=== PATIENT | male | born 1995 ===

== ENCOUNTER 2016-12-11 14:42 | Emergency (ER) | payer OTHER ==
[2016-12-11 14:42] VITALS: BMI 23.3
[2016-12-11 15:12] VITALS: BP 120/68; PULSE 63; RESP 16; TEMP 98.9; O2SAT 99
--- NOTE | 2016-12-11 15:46 | ED PDOC ---
HPI: General Adult Time Seen by Provider: 12/11/16 15:13 Chief Complaint (Nursing): Psychiatric Evaluation Chief Complaint (Provider): Needs a "neurology consult" History Per: Patient History/Exam Limitations: no limitations Additional Complaint(s): Pt states he was seen in ER and clinic for headaches and "memory loss". Pt states he was given Rx to be seen by neurology for consult. PT states that he had an appointment with neurology but did not make the appointment so he comes to ER for consult. Rx is dates 10/10/16. Past Medical History Reviewed: Historical Data, Nursing Documentation, Vital Signs Vital Signs: Last Vital Signs Temp 98.9 F 12/11/16 15:08 Pulse 63 12/11/16 15:08 Resp 16 12/11/16 15:08 BP 120/68 12/11/16 15:08 Pulse Ox 99 12/11/16 15:08 - Medical History PMH: No Chronic Diseases Denies: Diabetes, Hepatitis, HIV, HTN, Chronic Kidney Disease, Seizures, Sexually Transmitted Disease - Surgical History Surgical History: No Surg Hx - Family History Family History: States: Unknown Family Hx - Living Arrangements Living Arrangements: With Family - Social History Current smoker - smoking cessation education provided: No Alcohol: None Drugs: Denies - Home Medications Home Medications: Ambulatory Orders Medication Instructions Recorded Naproxen [Naprosyn] 500 mg PO Q12H #8 tablet 12/04/16 - Allergies Allergies/Adverse Reactions: Allergies Allergy/AdvReac Type Severity Reaction Status Date / Time No Known Allergies Allergy Verified 10/02/16 14:25 Review of Systems ROS Statement: Except As Marked, All Systems Reviewed And Found Negative Psych: Positive for: Other Physical Exam - Reviewed Nursing Documentation Reviewed: Yes Vital Signs Reviewed: Yes - Physical Exam Appears: Positive for: Well, Non-toxic, No Acute Distress Head Exam: Positive for: ATRAUMATIC, NORMAL INSPECTION, NORMOCEPHALIC Skin: Positive for: Normal Color, Warm, DRY Eye Exam: Positive for: EOMI, Normal appearance, PERRL ENT: Positive for: Normal ENT Inspection Neck: Positive for: Normal, Painless ROM Cardiovascular/Chest: Positive for: Regular Rate, Rhythm Respiratory: Positive for: CNT, Normal Breath Sounds Gastrointestinal/Abdominal: Positive for: Normal Exam, Bowel Sounds, Soft Back: Positive for: Normal Inspection Extremity: Positive for: Normal ROM Neurologic/Psych: Positive for: Alert, Oriented - ECG O2 Sat by Pulse Oximetry: 99 Disposition - Clinical Impression Clinical Impression: Normal exam Counseled Patient/Family Regarding: Diagnosis, Need For Followup - Disposition Referrals: [facility] [Outside] Corinna Borges MD [Staff Provider] - Disposition: Routine/Home Disposition Time: 15:46 Condition: GOOD Instructions: Normal Exam (ED) Print Language: UZBEK
== END 2016-12-11 15:56 | disposition home or self-care (01) ==
LOC: H.ER 14:42
DX: R51 Headache (principal)

== ENCOUNTER 2016-12-26 15:51 | Emergency (ER) | payer OTHER ==
[2016-12-26 15:51] VITALS: BMI 23.3
[2016-12-26 16:12] VITALS: BP 121/62; PULSE 74; RESP 18; TEMP 98.5; O2SAT 99
--- NOTE | 2016-12-26 16:43 | ED PDOC ---
HPI: General Adult Chief Complaint (Nursing): Medical Clearance Chief Complaint (Provider): medical clearance History Per: Patient History/Exam Limitations: no limitations Onset/Duration Of Symptoms: Unknown Have you had recent travel within the past 21 days to any of the following countries: [place], [place], [place] or [place]?: No Additional Complaint(s): Margariat Frey is a 21 year old male, with no previous medical history, who presents to the ED with prescriptions from neurologist for blood work and MRI. Patient is requesting to have his testing done in the ED. Patient was informed that he would be needed to be seen as an outpatient because the ED cannot preform these test. Past Medical History Reviewed: Historical Data, Nursing Documentation, Vital Signs Vital Signs: Last Vital Signs Temp 98.5 F 12/26/16 16:05 Pulse 74 12/26/16 16:05 Resp 18 12/26/16 16:05 BP 121/62 12/26/16 16:05 Pulse Ox 99 01/05/17 20:12 - Medical History PMH: No Chronic Diseases Denies: Diabetes, Hepatitis, HIV, HTN, Chronic Kidney Disease, Seizures, Sexually Transmitted Disease - Family History Family History: States: Unknown Family Hx - Home Medications Home Medications: Ambulatory Orders Medication Instructions Recorded No Known Home Med 12/11/16 - Allergies Allergies/Adverse Reactions: Allergies Allergy/AdvReac Type Severity Reaction Status Date / Time No Known Allergies Allergy Verified 12/11/16 15:55 Review of Systems ROS Statement: Except As Marked, All Systems Reviewed And Found Negative (no active medical complaints) Physical Exam - Reviewed Nursing Documentation Reviewed: Yes Vital Signs Reviewed: Yes - Physical Exam Appears: Positive for: Well, Non-toxic, No Acute Distress Head Exam: Positive for: ATRAUMATIC, NORMAL INSPECTION, NORMOCEPHALIC Cardiovascular/Chest: Positive for: Regular Rate, Rhythm Respiratory: Positive for: CNT, Normal Breath Sounds Neurologic/Psych: Positive for: Alert, Oriented - ECG O2 Sat by Pulse Oximetry: 99 (RA) Pulse Ox Interpretation: Normal Medical Decision Making Medical Decision Making: Initial Plan: * physical exam * disposition Scribe Attestation: Documented by Ivy Bowers, acting as a scribe for Elva Arreguin PA-C. Provider Scribe Attestation: All medical record entries made by the Scribe were at my direction and personally dictated by me. I have reviewed the chart and agree that the record accurately reflects my personal performance of the history, physical exam, medical decision making, and the department course for this patient. I have also personally directed, reviewed, and agree with the discharge instructions and disposition. Disposition - Clinical Impression Clinical Impression: Normal exam - Patient ED Disposition Is Patient to be Admitted: No Counseled Patient/Family Regarding: Diagnosis, Need For Followup - Disposition Disposition: Routine/Home Disposition Time: 16:41 Condition: GOOD Instructions: Normal Exam (ED) Print Language: BERMUDIAN
== END 2016-12-26 16:49 | disposition home or self-care (01) ==
LOC: H.ER 15:51
DX: Z00.00 Encounter for general adult medical examination without abnormal findings (principal)

== ENCOUNTER 2017-07-21 01:18 | Emergency (ER) | payer OTHER ==
[2017-07-21 01:18] VITALS: BMI 22.7
[2017-07-21 01:31] VITALS: BP 149/86; PULSE 68; RESP 18; TEMP 97.8; O2SAT 99
--- NOTE | 2017-07-21 02:04 | ED PDOC ---
HPI: Psych/Substance Abuse Time Seen by Provider: 07/21/17 01:41 Chief Complaint (Nursing): Psychiatric Evaluation History Per: Patient History/Exam Limitations: no limitations Onset/Duration Of Symptoms: Days Current Symptoms Are (Timing): Still Present Additional Complaint(s): Pt. arrives to ER c/o of "Seeing things", states he denies alcohol or drug use, but he has not been taking his medications as prescribed. denies si/hi. Past Medical History Vital Signs: Last Vital Signs Temp 97.8 F 07/21/17 01:28 Pulse 68 07/21/17 01:28 Resp 18 07/21/17 01:28 BP 149/86 07/21/17 01:28 Pulse Ox 99 07/21/17 01:28 - Medical History PMH: Anxiety Denies: Diabetes, Hepatitis, HIV, HTN, Chronic Kidney Disease, Seizures, Sexually Transmitted Disease - Family History Family History: States: Unknown Family Hx - Home Medications Home Medications: Ambulatory Orders Medication Instructions Recorded Divalproex [Depakote DR (*BID*)] 250 mg PO BID #30 tcp 06/12/17 LORazepam [Ativan] 0.5 mg PO DAILY PRN #14 tab 06/12/17 Risperidone [Risperdal] 1 mg PO AMHS #30 tablet 06/12/17 Thiamine [Vitamin B1 Tab] 100 mg PO DAILY #14 tab 06/12/17 buPROPion [Wellbutrin] 75 mg PO BID #30 tab 06/12/17 - Allergies Allergies/Adverse Reactions: Allergies Allergy/AdvReac Type Severity Reaction Status Date / Time No Known Allergies Allergy Verified 07/21/17 01:26 Review of Systems ROS Statement: Except As Marked, All Systems Reviewed And Found Negative Psych: Negative for: Anxiety, Depression, Psychosis, Suicidal ideation Physical Exam - Reviewed Nursing Documentation Reviewed: Yes Vital Signs Reviewed: Yes - Physical Exam Appears: Positive for: Well, Non-toxic, No Acute Distress Head Exam: Positive for: ATRAUMATIC, NORMAL INSPECTION, NORMOCEPHALIC Skin: Positive for: Normal Color, Warm, DRY Eye Exam: Positive for: EOMI, Normal appearance, PERRL ENT: Positive for: Normal ENT Inspection Neck: Positive for: Normal, Painless ROM Cardiovascular/Chest: Positive for: Regular Rate, Rhythm Respiratory: Positive for: CNT, Normal Breath Sounds Gastrointestinal/Abdominal: Positive for: Normal Exam, Bowel Sounds, Soft Back: Positive for: Normal Inspection Extremity: Positive for: Normal ROM Neurologic/Psych: Positive for: 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 Negative for: Motor/Sensory Deficits - Laboratory Results Result Diagrams: 07/21/17 02:05 07/21/17 02:05 - ECG O2 Sat by Pulse Oximetry: 99 Pulse Ox Interpretation: Normal Medical Decision Making Medical Decision Making: Pt. requiring crisis eval. 450am pt. cleared by dr. cuello for d/c, will f/u as outpatient. Disposition - Clinical Impression Clinical Impression: Depression - Disposition [facility]errals[facility]] Disposition: Routine/Home Disposition Time: 04:54 Condition: STABLE Instructions: Suicide Prevention for Adults (DC), Depression (ED) Forms: [facility] (Czech) Print Language: MARTINIQUAIS
[2017-07-21 02:21] LABS: BASO # 0.1 K/uL (0.0-0.2); BASO % 1.2 % (0.0-2.0); EOS # 0.1 K/uL (0.0-0.7); EOS % 1.1 % (0.0-4.0); HEMATOCRIT 46.9 % (35.0-51.0); LYMPH % 39.6 % (20.0-40.0); MEAN CELL VOLUME 89.5 fl (80.0-94.0); MEAN CORPUSCULAR HGB CONC 33.5 g/dL (33.0-37.0); MEAN PLATELET VOLUME 9.3 fl (7.2-11.7); MONO # 0.5 K/uL (0.0-0.8); MONO % 9.9 % (0.0-10.0); NEUT # 2.4 K/uL (1.8-7.0); NEUT % 48.2 % (50.0-75.0); RED CELL DISTRIBUTION WIDTH 12.9 % (11.5-14.5); WHITE BLOOD COUNT 4.9 K/uL (4.8-10.8)
[2017-07-21 02:23] LABS: RBC URINE 7 /hpf (0-3); URINE BACTERIA RARE (<OCC); URINE BILIRUBIN NEGATIVE (NEGATIVE); URINE BLOOD SMALL (NEGATIVE); URINE COLOR STRAW (YELLOW); URINE GLUCOSE (UA) NEG (Normal); URINE KETONE 20 mg/dL (NEGATIVE); URINE LEUKOCYTE ESTERASE NEG Leu/uL (Negative); URINE PROTEIN NEGATIVE (NEGATIVE); URINE UROBILINOGEN 0.2-1.0 mg/dL (0.2-1.0); WBC URINE 1 /hpf (0-5)
[2017-07-21 02:28] LABS: ALCOHOL SERUM < 10 mg/dl (0-10); BLOOD UREA NITROGEN 11 mg/dl (9-20); CALCIUM 9.5 mg/dL (8.4-10.2); CARBON DIOXIDE 24 mmol/L (22-30); CHLORIDE 101 mmol/L (98-107); GFR AFRICAN-AMERICAN > 60; GLUCOSE,RANDOM 90 mg/dL (75-110); POTASSIUM 3.5 MMOL/L (3.6-5.0); SODIUM 137 mmol/l (132-148)
== END 2017-07-21 05:21 | disposition home or self-care (01) ==
LOC: H.ER 01:18
DX: F32.9 Major depressive disorder, single episode, unspecified (principal); F41.9 Anxiety disorder, unspecified; Z91.14 Patient's other noncompliance with medication regimen

== ENCOUNTER 2018-01-08 18:08 | Inpatient (IN) | payer MEDICAID, OTHER ==
[2018-01-08 18:08] VITALS: BMI 24.5
--- NOTE | 2018-01-08 18:37 | ED PDOC ---
HPI: General Adult Time Seen by Provider: 01/08/18 18:22 Chief Complaint (Nursing): Headache Chief Complaint (Provider): No sleep History Per: Patient History/Exam Limitations: no limitations Onset/Duration Of Symptoms: Days Additional Complaint(s): Pt. states he has not slept for months. States his head hurts from that. Not the worst headache in his life. No numbness, tingles, weakness, neck pain, vision changes, abd pain, nausea, vomit, diarrhea. No fever. No injury. Denies drugs or etoh. Taking his meds. Pt. states the talking is making him "loco". No vision changes. Past Medical History Reviewed: Nursing Documentation, Vital Signs Vital Signs: Last Vital Signs Temp 98.3 F 01/08/18 18:14 Pulse 94 H 01/08/18 18:14 Resp 18 01/08/18 18:14 BP 128/76 01/08/18 18:14 Pulse Ox 96 01/08/18 18:37 - Medical History PMH: Anxiety, Bipolar Disorder Denies: Diabetes, Hepatitis, HIV, HTN, Chronic Kidney Disease, Seizures, Sexually Transmitted Disease - Surgical History Surgical History: No Surg Hx - Family History Family History: States: Unknown Family Hx - Immunization History Hx Tetanus Toxoid Vaccination: No Hx Influenza Vaccination: No Hx Pneumococcal Vaccination: No - Home Medications Home Medications: Ambulatory Orders Medication Instructions Recorded Benztropine [Benztropine Mesylate] 2 mg PO AMHS #30 tab 07/27/17 DiphenhydrAMINE [Benadryl] 50 mg PO HS #14 cap 07/27/17 Divalproex [Depakote DR(*BID*)] 500 mg PO AMHS #30 ect 07/27/17 Risperidone [Risperdal] 2 mg PO AMHS #30 tablet 07/27/17 buPROPion [Wellbutrin] 100 mg PO BID #30 tab 07/27/17 - Allergies Allergies/Adverse Reactions: Allergies Allergy/AdvReac Type Severity Reaction Status Date / Time No Known Allergies Allergy Verified 01/08/18 18:13 Review of Systems ROS Statement: Except As Marked, All Systems Reviewed And Found Negative Neurological: Positive for: Headache Physical Exam - Reviewed Nursing Documentation Reviewed: Yes Vital Signs Reviewed: Yes - Physical Exam Appears: Positive for: Non-toxic, No Acute Distress Head Exam: Positive for: ATRAUMATIC, NORMAL INSPECTION, NORMOCEPHALIC Skin: Positive for: Normal Color, Warm, DRY Eye Exam: Positive for: EOMI, Normal appearance, PERRL ENT: Positive for: Normal ENT Inspection Neck: Positive for: Normal, Painless ROM Cardiovascular/Chest: Positive for: Regular Rate, Rhythm Respiratory: Positive for: CNT, Normal Breath Sounds Gastrointestinal/Abdominal: Positive for: Normal Exam, Soft. Negative for: Tenderness Back: Positive for: Normal Inspection. Negative for: L CVA Tenderness, R CVA Tenderness Extremity: Positive for: Normal ROM. 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 Negative for: Motor/Sensory Deficits, Aphasia, Facial Droop - Laboratory Results Result Diagrams: 01/08/18 18:30 01/08/18 18:30 - ECG O2 Sat by Pulse Oximetry: 96 - Progress ED Course And Treament: 1925: Stable. Pain free. Tolerated po. Crisis saw pt. Will admit. Pt. medically stable for crisis. Disposition - Clinical Impression Clinical Impression: Schizophrenia - Patient ED Disposition Is Patient to be Admitted: Yes Counseled Patient/Family Regarding: Studies Performed, Diagnosis - Disposition Disposition Time: 19:00 Condition: FAIR - Pt Status Changed To: Hospital Disposition Of: Inpatient - Admit Certification Admit to Inpatient:: After my assessment, the patient will require hospitalization for at least two midnights. This is because of the severity of symptoms shown, intensity of services needed, and/or the medical risk in this patient being treated as an outpatient. - POA Present On Arrival: None
[2018-01-08 18:53] LABS: BASO # 0.1 K/uL (0.0-0.2); BASO % 1.1 % (0.0-2.0); EOS # 0.1 K/uL (0.0-0.7); EOS % 1.5 % (0.0-4.0); LYMPH # 2.5 K/uL (1.0-4.3); LYMPH % 46.8 % (20.0-40.0); MEAN CELL VOLUME 89.1 fl (80.0-94.0); MEAN CORPUSCULAR HEMOGLOBIN 30.4 pg (27.0-31.0); MEAN CORPUSCULAR HGB CONC 34.1 g/dL (33.0-37.0); MONO # 0.5 K/uL (0.0-0.8); MONO % 10.1 % (0.0-10.0); NEUT # 2.1 K/uL (1.8-7.0); NEUT % 40.5 % (50.0-75.0); RBC 4.93 Mil/uL (4.40-5.90); RED CELL DISTRIBUTION WIDTH 12.8 % (11.5-14.5); WHITE BLOOD COUNT 5.3 K/uL (4.8-10.8)
[2018-01-08 19:03] LABS: ALB/GLOB RATIO 1.2 (1.0-2.1)
[2018-01-08 19:12] LABS: ALT/SGPT 41 U/L (21-72); AST/SGOT 23 U/L (17-59); BARBITURATES, UR NEGATIVE (NEGATIVE); BENZODIAZEPINES, UR NEGATIVE (NEGATIVE); BLOOD UREA NITROGEN 14 mg/dl (9-20); GFR AFRICAN-AMERICAN > 60; GFR NON-AFRICAN AMERICAN > 60; OPIATES, UR NEGATIVE (NEGATIVE); PHENCYCLIDINE, UR NEGATIVE (NEGATIVE)
[2018-01-08] MEDS ORDERED: Alum-Mag Hydrox-Simethicone Susp (30 mL) PO PRN (21:24)
[2018-01-08] MEDS ORDERED: DiphenhydrAMINE 50 mg/ml Inj IM PRN (21:24)
[2018-01-08] MEDS ORDERED: Magnesium Hydroxide Susp 30 ml UD PO PRN (21:24)
--- NOTE | 2018-01-08 21:41 | PCM.BM ---
<IvajasonMatt davidjudith Umaña - Last Filed: 01/08/18 21:40> Treatment Plan Problems - Problems identified on initial assessmt Medication nonadherence Date Initiated: 01/08/18 Time Initiated: 21:40 Assessment reference: NA Status: Active Impaired Communication Date Initiated: 01/08/18 Time Initiated: 21:40 Assessment reference: NA Status: Active Treatment assets and liabiliti Patient Assests: cooperative, ADL independent, physically healthy, negotiates basic needs Patient Liabilities: live alone, financial problems, poor support system, relationship conflicts, language/speech - Milieu Protocol Maintain good personal hygiene: daily Encourage regular showers, daily Remind patient to perform daily oral care, daily Assist patient to perform ADL's Conduct patient checks and document Observation sheet: Q15 minutes Maintain personal safety: every shift Educate patient to report safety concerns to staff, every shift Monitor environment for contraband/sharps Medication safety: Monitor for expected outcome, potential side effects: every shift, Assess barriers to learning: every shift, Assess readiness for medication education: every shift <Vandana De Leon - Last Filed: 01/09/18 15:41> Treatment assets and liabiliti Patient Assests: self-reliant, ADL independent, physically healthy, negotiates basic needs Patient Liabilities: live alone (denies homelessness despite collateral provided at time of admission), other (poor insight into precursors to hospitalization, illness or need for tx) Family Contact Family involvement: Famliy/SO not involved Family contact: Patient declines to allow family contact at present - Goals for Treatment Patient goals for treatment: Patient to continue stabilization on 3NP through medication management and group/supportive therapy. Patient to be encouraged to attend groups regularly to promote self-awareness, reality testing and improve insight, compliance, coping skills and self-esteem. Patient to be provided with referral for appropriate level of aftercare to reduce risk of future hospitalizations and ensure safety in the community. Discharge/Continuing Care - Education Needs Education Needs: Patient Medication, Patient Diagnosis/Disease Process, Patient Coping Skills, Patient Community resources, Patient Aftercare Safety Plan - Discharge Discharge Criteria: Tolerates medication w/o severe side effects, Free of paranoid thoughts, Free of agitation, Normal sleep pattern, Ability to care for self, Reduction of target symptoms Discharge to:: Home, [facility] - Treatment Team Participation Patient/Family/SO Statement: 01/09/18 15:43 Patient was brought into tx team today to discuss precursors to hospitalization and tx goal. Pt. hypervigilant on 3NP prior to being brought into tx team room. Pt. reported sleep disturbances for a long time but denied recent changes in appetite. Pt. denied SI/HI. Pt denies AH/VH but presented as internally preoccupied and was observed responding to internal stimuli. Pt. presented as paranoid and irritable. Pt. reported hx of inpatient hospitalizations for neurological issues but was unable to provide name of facilities or dates of admissions. Pt. denied hx of SI/HI or violent behaviors. Pt. reported not knowing why he is on a psych unit as he does not have a psychiatric illness and is currently not experiencing psychiatric symptoms. Pt reported having been told that he would be assessed by a doctor in the morning and discharged immediately after if he were to sign admission. Pt. demanding to be discharged. Pt. grew increasingly more agitated through-out interaction but was able to be deescalated. Tx team provided extensive psychoeducation regarding nature of tx provided on 3NP, recommended medication management and benefits of completing tx on 3NP. Pt. continued to refuse recommended medication management or remaining on 3NP, requesting a second opinion. Psychological Examiner provided psychoeducation regarding 48 hour notice, screening process and possibility of commitment. Pts. expressed understanding and demanded to sign 48 hour notice. Psychological Examiner notified patient that if he required further translation, translating devices will be made available. 48hr notice was signed. Pt. awaiting screening. Pt. refused to sign tx plan. Psychological Examiner met with pt. following tx team meeting to attempt to collect further collateral and complete assessment. Pt denied being homeless or previously staying in shelters. Pt. reported residing in [place] and having family in [facility]. Pt. declined to provide further collateral information regarding social/family supports or living situation. Pt. denied currently being unemployed but refused to provide further collateral regarding employment hx of financial resources despite engagement from policy writer sales. Pt. denied hx of emotional, physical or sexual abuse. Pt. denies hx of arrests or outstanding legal issues. Pt. denied hx of or current ETOH/illicit substance abuse. Pt. evasive and guarded and declining to provide necessary collateral information complete assessment. Pt. refused to sign consent for family. Psychological Examiner to attempt to meet with pt at later time. Discussed with Family/SO: No Was Patient/Family/SO present at Treatment Team Meeting: Yes <Marcio Marr - Last Filed: 01/10/18 11:44> - Diagnosis (1) Psychosis Status: Acute Interventions: pharmacotherapy 01/10/18 11:44
[2018-01-09] MEDS ORDERED: Divalproex 500 mg DR(BID formulation) PO ONE (09:35)
[2018-01-09] MEDS ORDERED: Risperidone M tab 1 MG PO ONE (09:40)
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
[2018-01-09] MEDS: Divalproex 500 mg DR(BID formulation) PO SCH (17:48)
[2018-01-09] MEDS ORDERED: Risperidone M tab 1 MG PO SCH (22:00)
[2018-01-10 03:32] VITALS: O2SAT 100
[2018-01-10] MEDS ORDERED: Risperidone M tab 1 MG PO SCH (09:00)
[2018-01-10] MEDS ORDERED: Risperidone M TAB 2 MG PO SCH (09:00)
[2018-01-10 09:12] LABS: T4 10.5 ug/dl (5.5-11.0)
[2018-01-10 09:36] VITALS: BP 131/73; PULSE 90; RESP 18; TEMP 96.6
--- NOTE | 2018-01-10 09:42 | RAD ---
PROCEDURE: CHEST RADIOGRAPH, 1 VIEW HISTORY: routine COMPARISON: None available. FINDINGS: LUNGS: Clear. PLEURA: No pneumothorax or pleural fluid seen. CARDIOVASCULAR: Normal. OSSEOUS STRUCTURES: No significant abnormalities. VISUALIZED UPPER ABDOMEN: Normal. OTHER FINDINGS: None. IMPRESSION: No active disease.
[2018-01-10] MEDS: Divalproex 500 mg DR(BID formulation) PO SCH (10:19)
--- NOTE | 2018-01-10 12:26 | CARD ---
APPROVED REPORT EKG Measurement Heart [id number] <Conclusion> Normal sinus rhythm ST elevation, probably due to early repolarization Borderline ECG
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
== END 2018-01-10 14:44 | DRG 885 ==
LOC: H.ER 18:08 → H.ERHOLD 19:25 → H.PSYCH 21:22
PROVIDERS: ADMIT Psychiatry & Neurology Psychiatry; ATTEND Psychiatry & Neurology Psychiatry
PROC: GZHZZZZ Group Psychotherapy (ICD-10-PCS; principal; 2018-01-08)
PROC: GZ58ZZZ Individual Psychotherapy, Cognitive-Behavioral (ICD-10-PCS; 2018-01-08)
DX: F20.0 Paranoid schizophrenia (principal); E11.9 Type 2 diabetes mellitus without complications; F12.10 Cannabis abuse, uncomplicated; G47.00 Insomnia, unspecified; Z91.14 Patient's other noncompliance with medication regimen; Z91.5 Personal history of self-harm

== ENCOUNTER 2018-01-18 05:32 | Emergency (ER) | payer MEDICAID ==
[2018-01-18 05:32] VITALS: BMI 24.5
[2018-01-18 05:42] VITALS: BP 120/77; PULSE 83; RESP 16; TEMP 97.6; O2SAT 98
--- NOTE | 2018-01-18 05:55 | ED PDOC ---
HPI: Skin/Bite Injury Time Seen by Provider: 01/18/18 05:44 Chief Complaint (Nursing): Headache Chief Complaint (Provider): rash History Per: Patient History/Exam Limitations: no limitations Onset/Duration Of Symptoms: Days (x1 week) Current Symptoms Are (Timing): Still Present Quality Of Symptoms: Itching Additional Complaint(s): Margarita Callahan is a 22 year old male, with a past medical history of schizophrenia, who presents to the emergency department complaining of skin rash onset for x1 week. Patient was recently admitted to psych unit and presents today for pruritic lesions to his scalp and groin area. Patient is requesting a shot as well as treatment for possible exposure to scabies. He denies any fever, chills, cough, shortness of breath or chest pain. Patient is schizophrenic but is pleasant and does not appear paranoid or psychotic. No further medical complaints. PMD: None provided. Past Medical History Reviewed: Historical Data, Nursing Documentation, Vital Signs Vital Signs: Last Vital Signs Temp 97.6 F 01/18/18 05:39 Pulse 83 01/18/18 05:39 Resp 16 01/18/18 05:39 BP 120/77 01/18/18 05:39 Pulse Ox 98 01/18/18 05:39 - Medical History PMH: Anxiety, Bipolar Disorder, Depression, Schizophrenia Denies: Diabetes, Hepatitis, HIV, HTN, Chronic Kidney Disease, Seizures, Sexually Transmitted Disease - Surgical History Surgical History: No Surg Hx - Family History Family History: States: Unknown Family Hx - Social History Current smoker - smoking cessation education provided: No Alcohol: None Drugs: Denies - Immunization History Hx Tetanus Toxoid Vaccination: No Hx Influenza Vaccination: No Hx Pneumococcal Vaccination: No - Home Medications Home Medications: Ambulatory Orders Medication Instructions Recorded Acetaminophen [Tylenol 325mg tab] 650 mg PO Q4 PRN tab 01/10/18 Aluminum Hydroxide/Magnesium 30 ml PO Q4 PRN udc 01/10/18 [Maalox Plus 30 ml] Benztropine [Cogentin] 0.5 mg PO HS tab 01/10/18 DiphenhydrAMINE [Benadryl] 50 mg IM Q6 PRN vial 01/10/18 DiphenhydrAMINE [Benadryl] 50 mg PO HS PRN cap 01/10/18 DiphenhydrAMINE [Benadryl] 50 mg PO Q6 PRN cap 01/10/18 Divalproex [Depakote DR(*BID*)] 500 mg PO BID tcp 01/10/18 Haloperidol Lactate [Haldol] 5 mg IM Q4 PRN vial 01/10/18 Haloperidol [Haldol] 5 mg PO Q4 PRN tab 01/10/18 LORazepam [Ativan] 2 mg IM Q4 PRN vial 01/10/18 LORazepam [Ativan] 2 mg PO Q4 PRN tab 01/10/18 Magnesium Hydroxide [Milk Of 30 ml PO HS PRN udc 01/10/18 Magnesia] Risperidone [Risperdal M-TAB] 1 mg PO DAILY odt 01/10/18 Risperidone [Risperdal M-TAB] 1 mg PO HS odt 01/10/18 Permethrin [Elimite] 60 gm TP ONCE #1 cream..g. 01/18/18 - Allergies Allergies/Adverse Reactions: Allergies Allergy/AdvReac Type Severity Reaction Status Date / Time No Known Allergies Allergy Verified 01/18/18 05:39 Review of Systems ROS Statement: Except As Marked, All Systems Reviewed And Found Negative Constitutional: Negative for: Fever, Chills Cardiovascular: Negative for: Chest Pain Respiratory: Negative for: Cough, Shortness of Breath Skin: Positive for: Lesions (pruritic to scalp and groin) Physical Exam - Reviewed Nursing Documentation Reviewed: Yes Vital Signs Reviewed: Yes - Physical Exam Appears: Positive for: Non-toxic, No Acute Distress Head Exam: Positive for: ATRAUMATIC, NORMOCEPHALIC Skin: Positive for: Normal Color, Warm, Dry, Rash (Non-specific excoriations to the scalp. Hyperpigmented lesions to groin area) Eye Exam: Positive for: Normal appearance, EOMI, PERRL ENT: Positive for: Normal ENT Inspection Neck: Positive for: Painless ROM Cardiovascular/Chest: Positive for: Regular Rate, Rhythm. Negative for: Murmur Respiratory: Positive for: Normal Breath Sounds. Negative for: Respiratory Distress Gastrointestinal/Abdominal: Positive for: Normal Exam, Soft. Negative for: Tenderness Back: Positive for: Normal Inspection. Negative for: L CVA Tenderness, R CVA Tenderness, Vertebral Tenderness Extremity: Positive for: Normal ROM (upper and lower extremities). Negative for : Deformity, Swelling Neurologic/Psych: Positive for: Alert, Oriented. Negative for: Motor/Sensory Deficits - ECG O2 Sat by Pulse Oximetry: 98 (RA) Pulse Ox Interpretation: Normal Medical Decision Making Medical Decision Making: Initial Impression: 22 y/o male with possible scabies exposure Initial Plan: --SOLU-medrol 125 mg IM --Reevaluation 06:00 -Exam not consistent with active scabies, however patient was provided prescription for Elimite and given SOLU-medrol injection for possible non specific dermatitis. Patient is medically stable for discharge. ----- Scribe Attestation: Documented by Brandon Washington, acting as a scribe for Frankie Goodman MD. Provider Scribe Attestation: All medical record entries made by the Scribe were at my direction and personally dictated by me. I have reviewed the chart and agree that the record accurately reflects my personal performance of the history, physical exam, medical decision making, and the department course for this patient. I have also personally directed, reviewed, and agree with the discharge instructions and disposition. Disposition - Clinical Impression Clinical Impression: Scabies exposure - Disposition Disposition: Routine/Home Disposition Time: 06:00 Condition: STABLE Prescriptions: Permethrin [Elimite] 60 gm TP ONCE #1 cream..g. Instructions: Scabies Print Language: [id number]
== END 2018-01-18 06:05 | disposition home or self-care (01) ==
LOC: H.ER 05:32
DX: Z20.7 Contact with and (suspected) exposure to pediculosis, acariasis and other infestations (principal); F20.9 Schizophrenia, unspecified; F31.9 Bipolar disorder, unspecified; F41.9 Anxiety disorder, unspecified
CPT/HCPCS: 96372; 99281; J2930

== ENCOUNTER 2018-01-25 10:58 | Emergency (ER) | payer MEDICAID ==
[2018-01-25 11:08] VITALS: BMI 19.5
--- NOTE | 2018-01-25 11:53 | ED PDOC ---
HPI: Headache Time Seen by Provider: 01/25/18 11:40 Chief Complaint (Nursing): Headache Chief Complaint (Provider): Headache History Per: Patient History/Exam Limitations: no limitations Onset/Duration Of Symptoms: Days (six ), Persistent Current Symptoms Are (Timing): Still Present Severity: Moderate Quality: Sharp Preceeding Symptoms: None Associated Symptoms: denies: Photophobia, Nausea, Vomiting Additional Complaint(s): Pt presents to the ED with a complaint of headaches for approximately six days for which he indicates that he is taking no medication. Pt does state that he has a history of migraines in the past. Pt denies nausea, vomiting, fever, focal neurological defect and photophobia Past Medical History Reviewed: Historical Data, Nursing Documentation, Vital Signs Vital Signs: Last Vital Signs Temp 96.3 F L 01/25/18 11:07 Pulse 83 01/25/18 11:07 Resp 16 01/25/18 11:07 BP 128/76 01/25/18 11:07 Pulse Ox 97 01/25/18 11:07 - Medical History PMH: Anxiety, Bipolar Disorder, Depression, Migraine, Schizophrenia Denies: Diabetes, Hepatitis, HIV, HTN, Chronic Kidney Disease, Seizures, Sexually Transmitted Disease - Family History Family History: States: Unknown Family Hx - Immunization History Hx Tetanus Toxoid Vaccination: No Hx Influenza Vaccination: No Hx Pneumococcal Vaccination: No - Home Medications Home Medications: Ambulatory Orders Medication Instructions Recorded Acetaminophen [Tylenol 325mg tab] 650 mg PO Q4 PRN tab 01/10/18 Aluminum Hydroxide/Magnesium 30 ml PO Q4 PRN udc 01/10/18 [Maalox Plus 30 ml] Benztropine [Cogentin] 0.5 mg PO HS tab 01/10/18 DiphenhydrAMINE [Benadryl] 50 mg IM Q6 PRN vial 01/10/18 DiphenhydrAMINE [Benadryl] 50 mg PO HS PRN cap 01/10/18 DiphenhydrAMINE [Benadryl] 50 mg PO Q6 PRN cap 01/10/18 Divalproex [Depakote DR(*BID*)] 500 mg PO BID tcp 01/10/18 Haloperidol Lactate [Haldol] 5 mg IM Q4 PRN vial 01/10/18 Haloperidol [Haldol] 5 mg PO Q4 PRN tab 01/10/18 LORazepam [Ativan] 2 mg IM Q4 PRN vial 01/10/18 LORazepam [Ativan] 2 mg PO Q4 PRN tab 01/10/18 Magnesium Hydroxide [Milk Of 30 ml PO HS PRN udc 01/10/18 Magnesia] Risperidone [Risperdal M-TAB] 1 mg PO DAILY odt 01/10/18 Risperidone [Risperdal M-TAB] 1 mg PO HS odt 01/10/18 Permethrin [Elimite] 60 gm TP ONCE #1 cream..g. 01/18/18 - Allergies Allergies/Adverse Reactions: Allergies Allergy/AdvReac Type Severity Reaction Status Date / Time No Known Allergies Allergy Verified 01/18/18 05:39 Review of Systems ROS Statement: Except As Marked, All Systems Reviewed And Found Negative Constitutional: Negative for: Fever Neurological: Positive for: Headache. Negative for: Weakness, Confusion, Seizures, Altered Mental Status - Laboratory Results Result Diagrams: 01/25/18 12:58 01/25/18 12:58 - ECG O2 Sat by Pulse Oximetry: 97 Medical Decision Making Medical Decision Making: Pt with hx of schizophrenia and other ailments Pt acknowledges migraine history as well but took no medication 1315 - on re-evaluation, pt headache has dissipated post medication; pt is resting and drowsy from medication - will dischagre approximately 1400 Disposition - Clinical Impression Clinical Impression: Headache, Acute headache - Patient ED Disposition Is Patient to be Admitted: No Doctor Will See Patient In The: Office Counseled Patient/Family Regarding: Studies Performed, Diagnosis, Need For Followup - Disposition Disposition: Routine/Home Disposition Time: 14:57 Condition: STABLE Additional Instructions: Pt will follow up with his PMD in 2-3 days for management of chronic headaches Instructions: Tension Headache, Migraine Headache (DC), Headache, Adult (DC), Acute Headache (ED) Forms: [employer] (German) Print Language: ALBANIAN
[2018-01-25] MEDS ORDERED: DiphenhydrAMINE 50 mg/ml Inj IVP STA (11:57)
[2018-01-25] MEDS ORDERED: Sodium Chloride 0.9% 1,000 ML IV ONE (12:00)
[2018-01-25] MEDS ORDERED: DiphenhydrAMINE 50 mg/ml Inj ONE (12:24)
[2018-01-25 13:09] LABS: BASO % 0.8 % (0.0-2.0); EOS # 0.2 K/uL (0.0-0.7); EOS % 4.3 % (0.0-4.0); HEMOGLOBIN 14.8 g/dL (12.0-18.0); LYMPH # 1.6 K/uL (1.0-4.3); LYMPH % 30.5 % (20.0-40.0); MEAN CELL VOLUME 90.8 fl (80.0-94.0); MEAN CORPUSCULAR HEMOGLOBIN 30.5 pg (27.0-31.0); MEAN CORPUSCULAR HGB CONC 33.6 g/dL (33.0-37.0); MEAN PLATELET VOLUME 9.8 fl (7.2-11.7); MONO # 0.7 K/uL (0.0-0.8); MONO % 13.8 % (0.0-10.0); NEUT # 2.7 K/uL (1.8-7.0); NEUT % 50.6 % (50.0-75.0); RBC 4.84 Mil/uL (4.40-5.90); RED CELL DISTRIBUTION WIDTH 13.3 % (11.5-14.5); WHITE BLOOD COUNT 5.4 K/uL (4.8-10.8)
[2018-01-25 13:15] LABS: URINE BACTERIA RARE (<OCC); URINE BILIRUBIN NEGATIVE (NEGATIVE); URINE BLOOD NEGATIVE (NEGATIVE); URINE CLARITY SLIGHTY-CLOUDY (Clear); URINE COLOR YELLOW (YELLOW); URINE GLUCOSE (UA) NEG (Normal); URINE LEUKOCYTE ESTERASE NEG Leu/uL (Negative); URINE PROTEIN NEGATIVE (NEGATIVE); URINE UROBILINOGEN 0.2-1.0 mg/dL (0.2-1.0)
[2018-01-25 13:16] LABS: ALB/GLOB RATIO 1.3 (1.0-2.1); ALT/SGPT 30 U/L (21-72); AST/SGOT 19 U/L (17-59); BLOOD UREA NITROGEN 14 mg/dl (9-20); CALCIUM 8.9 mg/dL (8.4-10.2); GFR AFRICAN-AMERICAN > 60; GFR NON-AFRICAN AMERICAN > 60
[2018-01-25] MEDS ORDERED: Potassium Chloride 10 mEq ER Tab PO ONE (13:22)
[2018-01-25 15:21] VITALS: BP 121/80; PULSE 79; RESP 14; TEMP 98.2; O2SAT 100
== END 2018-01-25 15:22 | disposition home or self-care (01) ==
LOC: H.ER 10:58
DX: R51 Headache (principal); F20.9 Schizophrenia, unspecified; F31.9 Bipolar disorder, unspecified; F41.9 Anxiety disorder, unspecified
CPT/HCPCS: 80053; 81003; 85025; 96374; 96375; 99284; J1200; J1885; J2765; J7040

== ENCOUNTER 2018-02-04 16:48 | Emergency (ER) | payer MEDICAID ==
[2018-02-04 16:48] VITALS: BMI 19.5
[2018-02-04] MEDS ORDERED: Albuterol-Ipratrop 3 mg / 0.5 (3 ml) UD INH STA (18:20)
[2018-02-04] MEDS ORDERED: Albuterol-Ipratrop 3 mg / 0.5 (3 ml) UD ONE (18:30)
--- NOTE | 2018-02-04 18:49 | RAD ---
HISTORY: Cough. COMPARISON: 01/10/2018 TECHNIQUE: Chest PA and lateral FINDINGS: LUNGS: No active pulmonary disease. PLEURA: No significant pleural effusion identified. No pneumothorax apparent. CARDIOVASCULAR: Normal. OSSEOUS STRUCTURES: No significant abnormalities. VISUALIZED UPPER ABDOMEN: Normal. OTHER FINDINGS: None. IMPRESSION: No active disease. No significant interval change compared to the prior examination(s).
--- NOTE | 2018-02-04 19:08 | ED PDOC ---
HPI: Influenza Time Seen by Provider: 02/04/18 17:57 Chief Complaint: Cough, Cold, Congestion Chief Complaint (Provider): uri History Per: Patient Exam Limitations: no limitations Onset/Duration Of Symptoms: Days (3 weeks), Persistent Symptoms include: headache, bodyaches, sore throat, cough, nasal congestion. denies: fever, vomiting, diarrhea, difficulty breathing Past Medical History Reviewed: Historical Data, Nursing Documentation, Vital Signs Vital Signs: Last Vital Signs Temp 97.9 F 02/04/18 17:51 Pulse 83 02/04/18 17:51 Resp 18 02/04/18 17:51 BP 105/56 L 02/04/18 17:51 Pulse Ox 99 02/04/18 17:51 - Medical History PMH: Anxiety, Bipolar Disorder, Depression, Migraine, Schizophrenia Denies: Diabetes, Hepatitis, HIV, HTN, Chronic Kidney Disease, Seizures, Sexually Transmitted Disease - Family History Family History: States: Unknown Family Hx - Social History Current smoker - smoking cessation education provided: No Drugs: Denies - Immunization History Hx Tetanus Toxoid Vaccination: No Hx Influenza Vaccination: No Hx Pneumococcal Vaccination: No - Home Medications Home Medications: Ambulatory Orders Medication Instructions Recorded Acetaminophen [Tylenol 325mg tab] 650 mg PO Q4 PRN tab 01/10/18 Aluminum Hydroxide/Magnesium 30 ml PO Q4 PRN udc 01/10/18 [Maalox Plus 30 ml] Benztropine [Cogentin] 0.5 mg PO HS tab 01/10/18 DiphenhydrAMINE [Benadryl] 50 mg IM Q6 PRN vial 01/10/18 DiphenhydrAMINE [Benadryl] 50 mg PO HS PRN cap 01/10/18 DiphenhydrAMINE [Benadryl] 50 mg PO Q6 PRN cap 01/10/18 Divalproex [Depakote DR(*BID*)] 500 mg PO BID tcp 01/10/18 Haloperidol Lactate [Haldol] 5 mg IM Q4 PRN vial 01/10/18 Haloperidol [Haldol] 5 mg PO Q4 PRN tab 01/10/18 LORazepam [Ativan] 2 mg IM Q4 PRN vial 01/10/18 LORazepam [Ativan] 2 mg PO Q4 PRN tab 01/10/18 Magnesium Hydroxide [Milk Of 30 ml PO HS PRN udc 01/10/18 Magnesia] Risperidone [Risperdal M-TAB] 1 mg PO DAILY odt 01/10/18 Risperidone [Risperdal M-TAB] 1 mg PO HS odt 01/10/18 Permethrin [Elimite] 60 gm TP ONCE #1 cream..g. 01/18/18 Albuterol HFA [Ventolin HFA 90 2 puff IH Q4H PRN #1 inh 02/04/18 mcg/actuation (8 g)] Guaifenesin/Dextromethorphan 10 ml PO Q6 PRN #250 ml 02/04/18 [Robitussin Cough-Chest Dm Liq] - Allergies Allergies/Adverse Reactions: Allergies Allergy/AdvReac Type Severity Reaction Status Date / Time No Known Allergies Allergy Verified 01/18/18 05:39 Review of Systems ROS Statement: Except As Marked, All Systems Reviewed And Found Negative (and as per HPI) Constitutional: Negative for: Fever ENT: Positive for: Nose Discharge, Throat Pain Respiratory: Positive for: Cough, Sputum Neurological: Positive for: Headache Physical Exam - Reviewed Nursing Documentation Reviewed: Yes Vital Signs Reviewed: Yes - Physical Exam Appears: Positive for: Non-toxic, No Acute Distress Head Exam: Positive for: ATRAUMATIC, NORMOCEPHALIC Skin: Positive for: Warm Eye Exam: Positive for: Normal appearance ENT: Positive for: Pharynx Is (clear). Negative for: Pharyngeal Erythema, Tonsillar Exudate, Tonsillar Swelling Neck: Positive for: Painless ROM, Supple Cardiovascular/Chest: Positive for: Regular Rate, Rhythm, Chest Non Tender. Negative for: Murmur Respiratory: Positive for: Normal Breath Sounds, Other (bronchospamodic cough). Negative for: Accessory Muscle Use, Respiratory Distress Gastrointestinal/Abdominal: Positive for: Soft. Negative for: Tenderness Back: Positive for: Normal Inspection. Negative for: Decreased ROM Extremity: Positive for: Normal ROM. Negative for: Deformity Lymphatic: Negative for: Adenopathy Neurologic/Psych: Positive for: Alert, accounting coordinator II-XII (intact), Oriented (x3). Negative for: Motor/Sensory Deficits Medical Decision Making Medical Decision Making: Time: 1845 CXR FINDINGS: LUNGS: No active pulmonary disease. PLEURA: No significant pleural effusion identified. No pneumothorax apparent. CARDIOVASCULAR: Normal. OSSEOUS STRUCTURES: No significant abnormalities. VISUALIZED UPPER ABDOMEN: Normal. OTHER FINDINGS: None. IMPRESSION: No active disease. No significant interval change compared to the prior examination(s). - ECG O2 Sat by Pulse Oximetry: 99 Disposition - Clinical Impression Clinical Impression: URI (upper respiratory infection), Bronchospasm - Disposition Referrals: [facility] [Outside] - 02/05/18 Disposition: Routine/Home Disposition Time: 19:10 Condition: IMPROVED Prescriptions: Albuterol HFA [Ventolin HFA 90 mcg/actuation (8 g)] 2 puff IH Q4H PRN #1 inh PRN Reason: ASTHMA Guaifenesin/Dextromethorphan [Robitussin Cough-Chest Dm Liq] 10 ml PO Q6 PRN # 250 ml PRN Reason: cough Instructions: Viral Upper Respiratory Infection, Adult (DC) Forms: [employer] (Sami)
[2018-02-04 19:47] VITALS: BP 127/58; PULSE 85; RESP 16; TEMP 98.7; O2SAT 95
== END 2018-02-04 19:30 | disposition home or self-care (01) ==
LOC: H.ER 16:48
DX: J06.9 Acute upper respiratory infection, unspecified (principal); J98.01 Acute bronchospasm; Z86.59 Personal history of other mental and behavioral disorders

== ENCOUNTER 2018-02-07 06:12 | Emergency (ER) | payer MEDICAID ==
[2018-02-07 06:13] VITALS: BMI 25.8
[2018-02-07 06:26] VITALS: BP 116/74; TEMP 98.5
[2018-02-07 07:10] VITALS: PULSE 70; RESP 16; O2SAT 95
--- NOTE | 2018-02-07 07:18 | ED PDOC ---
HPI: CCC, URI, Sore Throat Time Seen by Provider: 02/07/18 07:06 Chief Complaint (Nursing): Cough, Cold, Congestion Chief Complaint (Provider): Cough History Per: Patient History/Exam Limitations: no limitations Current Symptoms Are (Timing): Still Present Associated Symptoms: Sore Throat, Cough, Sputum (yellow). denies: Fever Additional Complaint(s): 22 year old male presented to the ED complaining of a cough with yellow sputum and sore throat with onset of 3 weeks. Patient has reported to the ED 3 times in the past 4 days with the same complaint and has had 2 chest x-rays in the past 4 days. On 02/04 patient was discharged with a negative chest x-ray and negative strep and on 02/06, patient was discharged with a negative chest x-ray. He reports he has not filled his prescriptions because he has not gotten paid yet. Denies fever, CP, palpitations, and SOB. PCP: none provided Past Medical History Reviewed: Historical Data, Nursing Documentation, Vital Signs Vital Signs: Last Vital Signs Temp 98.5 F 02/07/18 06:23 Pulse 70 02/07/18 07:10 Resp 16 02/07/18 07:10 BP 116/74 02/07/18 06:23 Pulse Ox 95 02/07/18 07:25 - Medical History PMH: Anxiety, Bipolar Disorder, Depression, Migraine, Schizophrenia Denies: Diabetes, Hepatitis, HIV, HTN, Chronic Kidney Disease, Seizures, Sexually Transmitted Disease - Surgical History Surgical History: No Surg Hx - Family History Family History: States: Unknown Family Hx - Social History Current smoker - smoking cessation education provided: No Alcohol: None Drugs: Denies - Immunization History Hx Tetanus Toxoid Vaccination: No Hx Influenza Vaccination: No Hx Pneumococcal Vaccination: No - Home Medications Home Medications: Ambulatory Orders Medication Instructions Recorded Acetaminophen [Tylenol 325mg tab] 650 mg PO Q4 PRN tab 01/10/18 Aluminum Hydroxide/Magnesium 30 ml PO Q4 PRN udc 01/10/18 [Maalox Plus 30 ml] Benztropine [Cogentin] 0.5 mg PO HS tab 01/10/18 DiphenhydrAMINE [Benadryl] 50 mg IM Q6 PRN vial 01/10/18 DiphenhydrAMINE [Benadryl] 50 mg PO HS PRN cap 01/10/18 DiphenhydrAMINE [Benadryl] 50 mg PO Q6 PRN cap 01/10/18 Divalproex [Depakote DR(*BID*)] 500 mg PO BID tcp 01/10/18 Haloperidol Lactate [Haldol] 5 mg IM Q4 PRN vial 01/10/18 Haloperidol [Haldol] 5 mg PO Q4 PRN tab 01/10/18 LORazepam [Ativan] 2 mg IM Q4 PRN vial 01/10/18 LORazepam [Ativan] 2 mg PO Q4 PRN tab 01/10/18 Magnesium Hydroxide [Milk Of 30 ml PO HS PRN udc 01/10/18 Magnesia] Risperidone [Risperdal M-TAB] 1 mg PO DAILY odt 01/10/18 Risperidone [Risperdal M-TAB] 1 mg PO HS odt 01/10/18 Permethrin [Elimite] 60 gm TP ONCE #1 cream..g. 01/18/18 Albuterol HFA [Ventolin HFA 90 2 puff IH Q4H PRN #1 inh 02/04/18 mcg/actuation (8 g)] Guaifenesin/Dextromethorphan 10 ml PO Q6 PRN #250 ml 02/04/18 [Robitussin Cough-Chest Dm Liq] Azithromycin [Z-Richard] 250 mg PO DAILY #6 tab 02/06/18 Promethazine DM [Phenergan DM 5 ml PO Q4H PRN #120 ml 02/06/18 Syrup] - Allergies Allergies/Adverse Reactions: Allergies Allergy/AdvReac Type Severity Reaction Status Date / Time No Known Allergies Allergy Verified 01/18/18 05:39 Review of Systems ROS Statement: Except As Marked, All Systems Reviewed And Found Negative Constitutional: Negative for: Fever, Chills ENT: Positive for: Throat Pain (sore throat) Cardiovascular: Negative for: Chest Pain, Palpitations Respiratory: Positive for: Cough (with yellow sputum). Negative for: Shortness of Breath Physical Exam - Reviewed Nursing Documentation Reviewed: Yes Vital Signs Reviewed: Yes - Physical Exam Appears: Positive for: Non-toxic, No Acute Distress (sleeping comfortably and speaking in full sentences) Head Exam: Positive for: ATRAUMATIC, NORMAL INSPECTION, NORMOCEPHALIC Skin: Positive for: Normal Color, Warm, Dry Eye Exam: Positive for: Normal appearance ENT: Positive for: Normal ENT Inspection Neck: Positive for: Normal, Painless ROM Cardiovascular/Chest: Positive for: Regular Rate, Rhythm. Negative for: Murmur Respiratory: Positive for: Normal Breath Sounds. Negative for: Wheezing, Respiratory Distress Extremity: Positive for: Normal ROM Neurologic/Psych: Positive for: Alert, Oriented. Negative for: Motor/Sensory Deficits - ECG O2 Sat by Pulse Oximetry: 95 (RA) Pulse Ox Interpretation: Normal Medical Decision Making Medical Decision Making: Initial Impression: Upper respiratory infection Initial Plan: ECG 07:15 Upon provider reevaluation patient is feeling better, is medically stable, and requires no further treatment in the ED at this time. Counseling was provided and all questions were answered regarding diagnosis. Patient advised to fill prescriptions. There is agreement to discharge plan. Return if symptoms persist or worsen. Scribe Attestation: Documented by Yash Saba acting as a scribe for Ivy Estevez MD. Provider Scribe Attestation: All medical record entries made by the Scribe were at my direction and personally dictated by me. I have reviewed the chart and agree that the record accurately reflects my personal performance of the history, physical exam, medical decision making, and the department course for this patient. I have also personally directed, reviewed, and agree with the discharge instructions and disposition. Disposition - Clinical Impression Clinical Impression: URI (upper respiratory infection) - Disposition Referrals: [facility] [Outside] Disposition Time: 07:15 Condition: GOOD Additional Instructions: Llene las recetas que se le hayan dado en visitas pasadas. Instructions: Viral Upper Respiratory Infection, Adult (DC) Forms: [facility] [employer] (Serbian), Valentin Uzhun (Greenlandic) Print Language: SAMOAN
--- NOTE | 2018-02-08 16:31 | CARD ---
APPROVED REPORT EKG Measurement Heart [id number] <Conclusion> Normal sinus rhythm with sinus arrhythmia Early repolarization Normal ECG
== END 2018-02-07 07:37 | disposition home or self-care (01) ==
LOC: H.ER 06:12
DX: J06.9 Acute upper respiratory infection, unspecified (principal); F20.9 Schizophrenia, unspecified; F31.9 Bipolar disorder, unspecified; F41.9 Anxiety disorder, unspecified

== ENCOUNTER 2018-02-26 21:26 | Emergency (ER) | payer MEDICAID ==
[2018-02-26 21:26] VITALS: BMI 25.8
[2018-02-26 21:53] VITALS: BP 128/81; PULSE 78; RESP 18; TEMP 98.7; O2SAT 99
[2018-02-26] MEDS ORDERED: Sodium Chloride 0.9% 1,000 ML IV STA (22:16)
--- NOTE | 2018-02-26 22:19 | ED PDOC ---
HPI: Headache Time Seen by Provider: 02/26/18 22:09 Chief Complaint (Nursing): Headache History Per: Patient Onset/Duration Of Symptoms: Days (3) Current Symptoms Are (Timing): Still Present Severity: Moderate Quality: Aching Preceeding Symptoms: None Associated Symptoms: denies: Photophobia, Blurred Vision, Nausea Additional Complaint(s): Post headache x 3 days. Started after smoking marijuana and drinking beer. Denies trauma or fever.. Denies NV, no blurry vision. Denies stiff neck. Past Medical History Vital Signs: Last Vital Signs Temp 98.7 F 02/26/18 21:49 Pulse 78 02/26/18 21:49 Resp 18 02/26/18 21:49 BP 128/81 02/26/18 21:49 Pulse Ox 99 02/26/18 21:49 - Medical History PMH: Anxiety, Bipolar Disorder, Depression, Migraine, Schizophrenia Denies: Diabetes, Hepatitis, HIV, HTN, Chronic Kidney Disease, Seizures, Sexually Transmitted Disease - Family History Family History: States: Unknown Family Hx - Immunization History Hx Tetanus Toxoid Vaccination: No Hx Influenza Vaccination: No Hx Pneumococcal Vaccination: No - Home Medications Home Medications: Ambulatory Orders Medication Instructions Recorded Acetaminophen [Tylenol 325mg tab] 650 mg PO Q4 PRN tab 01/10/18 Aluminum Hydroxide/Magnesium 30 ml PO Q4 PRN udc 01/10/18 [Maalox Plus 30 ml] Benztropine [Cogentin] 0.5 mg PO HS tab 01/10/18 DiphenhydrAMINE [Benadryl] 50 mg IM Q6 PRN vial 01/10/18 DiphenhydrAMINE [Benadryl] 50 mg PO HS PRN cap 01/10/18 DiphenhydrAMINE [Benadryl] 50 mg PO Q6 PRN cap 01/10/18 Divalproex [Depakote DR(*BID*)] 500 mg PO BID tcp 01/10/18 Haloperidol Lactate [Haldol] 5 mg IM Q4 PRN vial 01/10/18 Haloperidol [Haldol] 5 mg PO Q4 PRN tab 01/10/18 LORazepam [Ativan] 2 mg IM Q4 PRN vial 01/10/18 LORazepam [Ativan] 2 mg PO Q4 PRN tab 01/10/18 Magnesium Hydroxide [Milk Of 30 ml PO HS PRN udc 01/10/18 Magnesia] Risperidone [Risperdal M-TAB] 1 mg PO DAILY odt 01/10/18 Risperidone [Risperdal M-TAB] 1 mg PO HS odt 01/10/18 Permethrin [Elimite] 60 gm TP ONCE #1 cream..g. 01/18/18 Albuterol HFA [Ventolin HFA 90 2 puff IH Q4H PRN #1 inh 02/04/18 mcg/actuation (8 g)] Guaifenesin/Dextromethorphan 10 ml PO Q6 PRN #250 ml 02/04/18 [Robitussin Cough-Chest Dm Liq] Azithromycin [Z-Richard] 250 mg PO DAILY #6 tab 02/06/18 Promethazine DM [Phenergan DM 5 ml PO Q4H PRN #120 ml 02/06/18 Syrup] Naproxen [Naprosyn] 500 mg PO Q12H #20 tab 02/26/18 - Allergies Allergies/Adverse Reactions: Allergies Allergy/AdvReac Type Severity Reaction Status Date / Time No Known Allergies Allergy Verified 02/26/18 21:49 Review of Systems ROS Statement: Except As Marked, All Systems Reviewed And Found Negative Constitutional: Negative for: Fever Neurological: Positive for: Headache Physical Exam - Reviewed Nursing Documentation Reviewed: Yes Vital Signs Reviewed: Yes - Physical Exam Appears: Positive for: Non-toxic, No Acute Distress Head Exam: Positive for: ATRAUMATIC, NORMAL INSPECTION, NORMOCEPHALIC Skin: Positive for: Normal Color, Warm, DRY Eye Exam: Positive for: EOMI, Normal appearance, PERRL ENT: Positive for: Normal ENT Inspection Neck: Positive for: Normal, Painless ROM, Supple Cardiovascular/Chest: Positive for: Regular Rate, Rhythm Respiratory: Positive for: CNT, Normal Breath Sounds Gastrointestinal/Abdominal: Positive for: Normal Exam, Soft Back: Positive for: Normal Inspection Extremity: Positive for: Normal ROM Neurologic/Psych: Positive for: Alert, Oriented. Negative for: Motor/Sensory Deficits - Laboratory Results Result Diagrams: 02/26/18 22:36 02/26/18 22:36 - ECG O2 Sat by Pulse Oximetry: 99 - Progress Re-evaluation Time: 23:30 Condition: Improved Disposition - Clinical Impression Clinical Impression: Headache - Patient ED Disposition Is Patient to be Admitted: No Counseled Patient/Family Regarding: Studies Performed, Diagnosis, Need For Followup, Rx Given - Disposition Referrals: [facility] [Outside] Disposition: Routine/Home Disposition Time: 23:31 Condition: FAIR Prescriptions: Naproxen [Naprosyn] 500 mg PO Q12H #20 tab Instructions: Headache, Adult Forms: [facility] (Djiboutian) Print Language: FRENCH
[2018-02-26 22:47] LABS: BASO % 0.5 % (0.0-2.0); EOS # 0.1 K/uL (0.0-0.7); EOS % 1.9 % (0.0-4.0); HEMOGLOBIN 15.6 g/dL (12.0-18.0); LYMPH # 1.9 K/uL (1.0-4.3); LYMPH % 41.3 % (20.0-40.0); MEAN CELL VOLUME 89.4 fl (80.0-94.0); MEAN CORPUSCULAR HEMOGLOBIN 30.6 pg (27.0-31.0); MEAN CORPUSCULAR HGB CONC 34.2 g/dL (33.0-37.0); MEAN PLATELET VOLUME 9.1 fl (7.2-11.7); MONO # 0.5 K/uL (0.0-0.8); MONO % 10.3 % (0.0-10.0); NEUT # 2.1 K/uL (1.8-7.0); NRBC % 0.1 % (0.0-0.0); RBC 5.12 Mil/uL (4.40-5.90); RED CELL DISTRIBUTION WIDTH 13.3 % (11.5-14.5); WHITE BLOOD COUNT 4.6 K/uL (4.8-10.8)
[2018-02-26 22:57] LABS: CALCIUM 9.3 mg/dL (8.4-10.2); GFR AFRICAN-AMERICAN > 60; GFR NON-AFRICAN AMERICAN > 60
[2018-02-26 23:01] LABS: ALB/GLOB RATIO 1.2 (1.0-2.1); ALBUMIN 4.7 g/dL (3.5-5.0); ALT/SGPT 24 U/L (21-72); AST/SGOT 27 U/L (17-59); BLOOD UREA NITROGEN 12 mg/dl (9-20)
== END 2018-02-26 23:45 | disposition home or self-care (01) ==
LOC: H.ER 21:26
DX: R51 Headache (principal)
CPT/HCPCS: 80053; 85025; 96361; 96374; 99283; J1885; J7030

== ENCOUNTER 2018-07-31 11:14 | Emergency (ER) | payer SELFPAY ==
[2018-07-31 11:14] VITALS: BMI 25.0
[2018-07-31 11:43] VITALS: RESP 18; TEMP 98.4
--- NOTE | 2018-07-31 13:03 | ED PDOC ---
HPI: Headache Time Seen by Provider: 07/31/18 12:13 Chief Complaint (Nursing): Headache Chief Complaint (Provider): Headache History Per: Patient History/Exam Limitations: no limitations Onset/Duration Of Symptoms: Days (x2 weeks ) Current Symptoms Are (Timing): Intermittent Episodes Preceeding Symptoms: None Additional Complaint(s): Margarita Callahan is a 23 year old male with no past medical history, who presents to the emergency department complaining of having intermittent episodes of lower posterior head pain, onset x2 weeks. Patient states he associates it with his smoking and he denies having pain in any other part of his head or ever experiencing this pain before. Patient reports not having any nausea, vomiting, abdominal pain or any visual changes. He denies taking any medication for pain. PMD: No provider Past Medical History Reviewed: Historical Data, Nursing Documentation, Vital Signs Vital Signs: Last Vital Signs Temp 98.4 F 07/31/18 11:39 Pulse 68 07/31/18 11:39 Resp 18 07/31/18 11:39 BP 132/86 07/31/18 11:39 Pulse Ox 98 07/31/18 11:39 - Medical History PMH: Anxiety, Bipolar Disorder, Bronchitis, Depression, Migraine, Schizophrenia Denies: Diabetes, Hepatitis, HIV, HTN, Personality Disorder, Chronic Kidney Disease, Seizures, Sexually Transmitted Disease - Surgical History Surgical History: No Surg Hx - Family History Family History: States: Unknown Family Hx - Social History Current smoker - smoking cessation education provided: Yes Alcohol: None Drugs: Denies - Immunization History Hx Tetanus Toxoid Vaccination: No Hx Influenza Vaccination: No Hx Pneumococcal Vaccination: No - Home Medications Home Medications: Ambulatory Orders Medication Instructions Recorded Benztropine [Cogentin] 0.5 mg PO AMHS #30 tab 07/10/18 Divalproex [Depakote DR (*BID*)] 250 mg PO BID #30 tcp 07/10/18 LORazepam [Ativan] 0.5 mg PO AMHS #30 tab 07/10/18 Nicotine 7 mg/24 hr [Nicoderm CQ] 1 patch TD DAILY #14 patch 07/10/18 Olanzapine [Zyprexa] 5 mg PO AMHS #30 tablet 07/10/18 - Allergies Allergies/Adverse Reactions: Allergies Allergy/AdvReac Type Severity Reaction Status Date / Time No Known Allergies Allergy Verified 07/31/18 11:38 Review of Systems ROS Statement: Except As Marked, All Systems Reviewed And Found Negative Eyes: Negative for: Vision Change Gastrointestinal: Negative for: Nausea, Vomiting, Abdominal Pain Neurological: Positive for: Headache Physical Exam - Reviewed Nursing Documentation Reviewed: Yes Vital Signs Reviewed: Yes - Physical Exam Appears: Positive for: Non-toxic, No Acute Distress Head Exam: Positive for: ATRAUMATIC, NORMOCEPHALIC Skin: Positive for: Normal Color Eye Exam: Positive for: Normal appearance, PERRL Cardiovascular/Chest: Positive for: Regular Rate, Rhythm Respiratory: Positive for: Normal Breath Sounds. Negative for: Accessory Muscle Use, Respiratory Distress Neurologic/Psych: Positive for: Alert, Oriented (x3). Negative for: Motor/Sensory Deficits - ECG O2 Sat by Pulse Oximetry: 98 (RA) Pulse Ox Interpretation: Normal Medical Decision Making Medical Decision Making: Time: 12:31 Plan: --Motrin 600 mg PO -- Scribe Attestation: Documented by Alexander Sarmiento, acting as a scribe for Elva Arreguin PA-C Provider Scribe Attestation: All medical record entries made by the Scribe were at my direction and personally dictated by me. I have reviewed the chart and agree that the record accurately reflects my personal performance of the history, physical exam, medical decision making, and the department course for this patient. I have also personally directed, reviewed, and agree with the discharge instructions and di sposition. Disposition - Clinical Impression Clinical Impression: Headache - Patient ED Disposition Is Patient to be Admitted: No Counseled Patient/Family Regarding: Diagnosis, Need For Followup, Rx Given - Disposition Referrals: Elo Connelly MD [Medical Doctor] - Disposition: Routine/Home Disposition Time: 13:33 Condition: GOOD Instructions: Tension Headache Forms: [employer] (Nepali) Print Language: INDONESIAN
[2018-07-31 13:49] VITALS: BP 128/78; PULSE 88; O2SAT 99
== END 2018-07-31 13:46 | disposition home or self-care (01) ==
LOC: H.ER 11:14
DX: R51 Headache (principal)